=== PATIENT | male | born 1990 | race Caucasian/White ===

== ENCOUNTER 2018-06-19 04:43 | Emergency (ER) | payer MEDICAID ==
[~2018-06-19] VITALS: Ht 182.9 cm; Wt 93.1 kg
[2018-06-19 04:47] VITALS: BP 126/84
[2018-06-19] MEDS ORDERED: PRED20TA PO (05:02)
[2018-06-19] MEDS ORDERED: predniSONE 20 mg tablet PO ONE (05:05)
== END 2018-06-19 05:25 | disposition home or self-care (01) ==
LOC: ER 04:44
DX: T63.441A Toxic effect of venom of bees, accidental (unintentional), initial encounter (principal); Z88.1 Allergy status to other antibiotic agents; Z88.8 Allergy status to other drugs, medicaments and biological substances; Z79.899 Other long term (current) drug therapy; Y92.89 Other specified places as the place of occurrence of the external cause
CPT/HCPCS: 99283; J7512